=== PATIENT | female | born 1970 | race Caucasian/White ===

== ENCOUNTER 2017-05-23 07:52 | Emergency (ER) | payer BC ==
[2017-05-23] MEDS ORDERED: Vistaril 50 MG/ML IM ONE (08:37)
[2017-05-23] MEDS ORDERED: VISTARIL 100MG/2ML IM ONE (08:43)
--- NOTE | 2017-05-23 08:43 | ERPHSYRPT ---
- History of Present Illness Time Seen by Provider: 05/23/17 08:20 Source: patient, family (sister) Patient Subjective Stated Complaint: pt reports she flew up from [place] due to the suicide of her 13 yr old niece forgetting her home meds-states she has not slept in 24 hrs-reports headache and feeling like her bp is high-denies pain pressure of unusual feeling-states she feels numb and she needs to take something to go to sleep-states she just wants rest-denies thoughts of harming herself Triage Nursing Assessment: pt pale warm and sul-wgdix-cautfrvar all questions correctly-resp easy and nonlabored-pt tearful to emotional at times-pupils responsive-pt concerned about bilateral feet swelling-slight swelling noted Physician History: CC: anxious Hx: 46 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 She is staying with family. She takes cymbalta, alb MDI, ambien, klonopin, and vasculara. She has swelling of the legs. She is anxious. Can not sleep. She has her cymbalta but forgot the other medications. No suicide thoughts. She will be here for a week. No chest pain. No fever or chills. Timing/Duration: today Severity: severe Allergies/Adverse Reactions: No Known Drug Allergies Allergy (Unverified 05/23/17 08:15) Home Medications: Clonazepam [Clonazepam] 0.5 mg PO BID 05/23/17 [History] Duloxetine HCl [Cymbalta] 60 mg PO DAILY 05/23/17 [History] Estradiol [Estrogel] 50 gm TOP DAILY 05/23/17 [History] Zolpidem Tartrate 10 mg PO HS 05/23/17 [History] Hx Tetanus, Diphtheria Vaccination/Date Given: Yes Hx Influenza Vaccination/Date Given: Yes Hx Pneumococcal Vaccination/Date Given: No Immunizations Up to Date: Yes - Review of Systems Constitutional: No Fever, No Chills Respiratory: Dyspnea (with anxiety), No Cough Cardiac: Edema, No Chest Pain Abdominal/Gastrointestinal: No Abdominal Pain, No Nausea, No Vomiting Skin: No Rash Neurological: No Headache All Other Systems: Reviewed and Negative - Past Medical History Pertinent Past Medical History: Yes Cardiac History: Hypertension Respiratory History: Asthma Psycho-Social History: Anxiety, Depression - Past Surgical History Past Surgical History: Yes Female Surgical History: Hysterectomy Other Surgical History: bariatric - Social History Smoking Status: Never smoker Exposure to second hand smoke: No Drug Use: none Patient Lives Alone: No - Female History Hx Now: No - Nursing Vital Signs Nursing Vital Signs: Initial Vital Signs Temperature 98.1 F 05/23/17 08:10 Pulse Rate 81 05/23/17 08:10 Respiratory Rate 18 05/23/17 08:10 Blood Pressure 160/98 05/23/17 08:10 O2 Sat by Pulse Oximetry 96 05/23/17 08:10 Pain Scale Pain Intensity 5 - Physical Exam General Appearance: alert, obese Eye Exam: PERRL/EOMI Ears, Nose, Throat Exam: normal ENT inspection, moist mucous membranes Neck Exam: normal inspection, non-tender, supple Respiratory Exam: normal breath sounds Cardiovascular Exam: regular rate/rhythm Gastrointestinal/Abdomen Exam: soft, No tenderness, No distention Back Exam: normal inspection Extremity Exam: pedal edema, No calf tenderness Neurologic Exam: alert, oriented x 3, cooperative, sensation nml, No motor deficits Skin Exam: warm, dry, No rash SpO2 Interpretation: normal SpO2: 96 Oxygen Delivery: Room Air - Course Nursing assessment & vital signs reviewed: Yes - Progress Progress Note: 05/23/17 08:41 INSPECT reviewed- no records [place], unable to view [place]. Will give klonopin at her normal dose. Vistaril IM here. Refill alb MDI. Counseled pt/family regarding: diagnosis, need for follow-up - Departure Time of Disposition: 08:41 Departure Disposition: Home Clinical Impression: Anxiety as acute reaction to exceptional stress Condition: Stable Critical Care Time: No Instructions: Anxiety, Adult (DC) Additional Instructions: Rx klonopin. Rx albuterol MDI. Continue your cymbalta as prescribed. Go to the pharmacy to get support stockings. Return for problems or concerns. No driving today or while taking klonopin. Stay with family. Prescriptions: Albuterol Sulfate [Albuterol Sulfate Hfa] 2 puff IH Q4-6HPRN PRN #1 [id number] PRN Reason: cough or wheeze Clonazepam 0.5 mg [Klonopin 0.5 MG] 0.5 mg PO BID #14 tab
[2017-05-23 09:01] VITALS: BP 158/78; PULSE 74; O2SAT 97
== END 2017-05-23 09:11 | disposition home or self-care (01) ==
LOC: ED 07:52
DX: F41.9 Anxiety disorder, unspecified (principal); F43.0 Acute stress reaction
CPT/HCPCS: 96372; 99284; J3410